=== PATIENT | female | born 1955 | race Caucasian/White ===

== ENCOUNTER → 2018-09-23 | Outpatient (CLI) | payer OTHER ==
--- NOTE | 2018-09-25 11:59 | RAD ---
DATE: 09/23/2018 EXAM: DIGITAL SCREEN BILAT W/CAD HISTORY: Breast implants, routine screening COMPARISON: 04/17/2011 This study was interpreted with the benefit of Computerized Aided Detection (CAD). Breast Density: SCATTERED The breast parenchyma shows scattered fibroglandular densities. Breast parenchyma level B. FINDINGS: Routine and implant exclusion views of both breasts were obtained in CC and MLO projections. Again noted is collapse of the right breast implant which has worsened since the previous study. There are multiple unchanged dense nodular opacities in the right breast suggesting extravasated silicone. Scattered benign type calcifications are also noted in the right breast. No new breast densities are seen. On the left there are extensive irregular capsular calcifications which have developed since the previous study. The adjacent breast tissues show no evidence of a discrete mass. IMPRESSION: 1. Rupture of the right breast implant with stable dense nodular opacities compatible with extravasated silicone. 2. Extensive capsular calcification related to the left breast implant. 3. No mammographic evidence of malignancy in either breast. BI-RADS CATEGORY: 2 BENIGN FINDING(S) RECOMMENDED FOLLOW-UP: 12M 12 MONTH FOLLOW-UP PQRS compliance statement: Patient information was entered into a reminder system with a target due date for the next mammogram. Mammography is a sensitive method for finding small breast cancers, but it does not detect them all and is not a substitute for careful clinical examination. A negative mammogram does not negate a clinically suspicious finding and should not result in delay in biopsying a clinically suspicious abnormality. "Our facility is accredited by the [employer] Mammography Program."
== END | disposition home or self-care (01) ==
LOC: MAMMO 08:59
PROVIDERS: ATTEND Physician Assistant
DX: Z12.31 Encounter for screening mammogram for malignant neoplasm of breast (principal); T85.898A Other specified complication of other internal prosthetic devices, implants and grafts, initial encounter
CPT/HCPCS: 77067

== ENCOUNTER 2020-04-23 15:55 | Emergency (ER) | payer OTHER ==
[~2020-04-23] VITALS: Ht 162.6 cm; Wt 63.6 kg
--- NOTE | 2020-04-23 16:31 | PHYS DOC ---
Past History Past Medical History: Depression, High Cholesterol, Hypertension Alcohol Use: Occasionally (Last drink this morning) Adult General Chief Complaint Chief Complaint: SHORTNESS OF BREATH HPI HPI Patient is a 64-year-old female who presents with palpitations. Patient reports onset was yesterday evening after drinking several beers. Nothing known makes better or worse. Patient reports generalized palpitations, chest tightness, and increased shortness of breath. Symptoms wax and wane since onset. Patient was able to sleep but after drinking a beer earlier today, patient had recurrent symptoms concerning her to travel to our facility via POV for evaluation. Patient voices history of hypertension and takes an unknown medication for this, she takes a statin for hypercholesterolemia, and also takes an unknown medicine for anxiety/depression. She has no cardiac history, no significant family history of early cardiac disease, she has never had a formal cardiac work-up. Patient otherwise denies any fever, URI and/or COVID symptoms, ripping chest pain, abdominal pain, nausea/vomit/diarrhea, no urinary symptoms. Of note, patient with full capacity confirmed she is full CODE STATUS Review of Systems Review of Systems Fourteen body systems of review of systems have been reviewed. See HPI for pertinent positives and negative responses, other milligan all other systems are negative, non-pertinent or non-contributory Allergies Allergies Allergies Coded Allergies Type Severity Reaction Last Updated Verified No Known Drug Allergies 04/23/20 No Physical Exam Physical Exam Constitutional: Well developed, well nourished, no acute distress, non-toxic appearance. [] HENT: Normocephalic, atraumatic, bilateral external ears normal, oropharynx moist, no oral exudates, nose normal. [] Eyes: PERRLA, EOMI, conjunctiva normal, no discharge. [] Neck: Normal range of motion, no tenderness, supple, no stridor. [] Cardiovascular:Heart rate regular rhythm, no murmur [] Lungs & Thorax: Bilateral breath sounds clear to auscultation [] Abdomen: Bowel sounds normal, soft, no tenderness, no masses, no pulsatile masses. [] Skin: Warm, dry, no erythema, no rash. [] Back: No tenderness, no CVA tenderness. [] Extremities: No tenderness, no cyanosis, no clubbing, ROM intact, no edema. [] Neurologic: Alert and oriented X 3, normal motor function, normal sensory function, no focal deficits noted. [] Psychologic: Affect normal, judgement normal, mood normal. [] Current Patient Data Vital Signs Vital Signs Date Time Temp Pulse Resp B/P (MAP) Pulse Ox O2 Delivery O2 Flow Rate FiO2 04/23/20 16:46 138 121/62 04/23/20 16:26 97.3 24 100 Lab Results Laboratory Tests Test 04/23/20 16:23 04/23/20 17:22 White Blood Count 11.7 x10^3/uL (4.0-11.0) Red Blood Count 3.84 x10^6/uL (3.50-5.40) Hemoglobin 10.4 g/dL (12.0-15.5) Hematocrit 31.4 % (36.0-47.0) Mean Corpuscular Volume 82 fL (79-100) Mean Corpuscular Hemoglobin 27 pg (25-35) Mean Corpuscular Hemoglobin Concent 33 g/dL (31-37) Red Cell Distribution Width 14.4 % (11.5-14.5) Platelet Count 477 x10^3/uL (140-400) Neutrophils (%) (Auto) 77 % (31-73) Lymphocytes (%) (Auto) 11 % (24-48) Monocytes (%) (Auto) 11 % (0-9) Eosinophils (%) (Auto) 1 % (0-3) Basophils (%) (Auto) 1 % (0-3) Neutrophils # (Auto) 9.0 x10^3uL (1.8-7.7) Lymphocytes # (Auto) 1.2 x10^3/uL (1.0-4.8) Monocytes # (Auto) 1.3 x10^3/uL (0.0-1.1) Eosinophils # (Auto) 0.1 x10^3/uL (0.0-0.7) Basophils # (Auto) 0.1 x10^3/uL (0.0-0.2) Sodium Level 120 mmol/L (136-145) Potassium Level 3.3 mmol/L (3.5-5.1) Chloride Level 87 mmol/L (98-107) Carbon Dioxide Level 17 mmol/L (21-32) Anion Gap 16 (6-14) Blood Urea Nitrogen 5 mg/dL (7-20) Creatinine 0.7 mg/dL (0.6-1.0) Estimated GFR (Cockcroft-Gault) 84.5 BUN/Creatinine Ratio 7 (6-20) Glucose Level 109 mg/dL (70-99) Calcium Level 8.6 mg/dL (8.5-10.1) Magnesium Level 1.8 mg/dL (1.8-2.4) Total Bilirubin 0.5 mg/dL (0.2-1.0) Aspartate Amino Transf (AST/SGOT) 22 U/L (15-37) Alanine Aminotransferase (ALT/SGPT) 13 U/L (14-59) Alkaline Phosphatase 205 U/L (46-116) Creatine Kinase 76 U/L (26-192) Creatine Kinase MB (Mass) 2.0 ng/mL (0.0-3.6) Creatine Kinase MB Relative Index 2.6 % (0-4) Troponin I Quantitative < 0.017 ng/mL (0-0.055) YK-[id number]-[id number]-Type Natriuretic Peptide 2209 pg/mL (0-124) Total Protein 7.3 g/dL (6.4-8.2) Albumin 2.2 g/dL (3.4-5.0) Albumin/Globulin Ratio 0.4 (1.0-1.7) Lipase 41 U/L (73-393) Prothrombin Time 12.1 SEC (9.4-11.4) Prothromb Time International Ratio 1.2 (0.9-1.1) Activated Partial Thromboplast Time 37 SEC (23-33) EKG EKG EKG ordered and interpreted by myself at 1630 hrs. as atrial fibrillation with rapid ventricular response with ventricular rate of 126 bpm, unremarkable intervals, no axis deviation, no acute ischemic findings, no STEMI Radiology/Procedures Radiology/Procedures PROCEDURE: PORTABLE CHEST 1V Exam: Chest one view INDICATION: Shortness of breath TECHNIQUE: Frontal view of the chest Comparisons: None FINDINGS: The cardiomediastinal silhouette and pulmonary vessels are within normal limits. Hazy opacity at the right mid and lower lung. There is a small to moderate right pleural effusion. IMPRESSION: Small to moderate right pleural effusion with adjacent airspace disease may relate to atelectasis edema and/or consolidation. Electronically signed by: Bridget Acosta MD (04/23/2020 4:54 PM) [id number] Course & Med Decision Making Course & Med Decision Making Ambulatory patient seen on immediate ER arrival Airway patent, patient in mild respiratory distress with increased work of breathing, vitals remarkable for atrial fibrillation with rapid ventricular rate ~130-150bpm Comprehensive history and physical exam performed, subsequent diagnostic studies ordered IV access obtained, weight-based Cardizem (16 mg) administered resulting in rate control, 324 mg aspirin, 1 g Rocephin and 500 mg azithromycin administered ER course reviewed, I discussed with patient need for admission for continued cardiac monitoring, medical care and further diagnostic work-up. Patient was amenable I discussed most likely diagnosis of atrial fibrillation with RVR that is now rate controlled. Source of this is unknown and new onset, patient's alcohol abuse and current right lower lobe effusion/consolidation are likely causes I also discussed gross electrolyte abnormalities with patient, this is likely a result of patient's unknown blood pressure medication and/or unknown depression medication. Patient has friend getting home medications to bring to hospital for hospitalist review I contacted Dr. Reece regarding this admission and joint decision to transfer to [facility] given more access to specialist such as cardiology and if needed pulmonology etc. I contacted Dr. Coats, cardiology at [facility] who recommended I administer 1 mg/kg Lovenox and 250 mcg digoxin prior to ER departure to [facility] Patient updated on these conversations, most likely diagnoses, and need for transfer and admission and she was amenable. All questions and concerns addressed prior to ER transport in stable condition to [facility] for higher acuity of care Nichelle Disclaimer Nichelle Disclaimer This electronic medical record was generated, in whole or in part, using a voice recognition dictation system. The HEART Score for CP Pts HEART Score for Chest Pain: HEART Score for Chest Pain Response (Comments) Value History Moderately Suspicious 1 ECG Normal 0 Age >45 - < 65 1 Risk Factors >3 Risk Factors or Hx CAD 2 Troponin < Normal Limit 0 Total 4 Risk Factors: Risk Factors: DM, Current or recent (<one month) smoker, HTN, HLP, family history of CAD, obesity. Risk Scores: Score 0 - 3: 2.5% MACE over next 6 weeks - Discharge Home Score 4 - 6: 20.3% MACE over next 6 weeks - Admit for Clinical Observation Score 7 - 10: 72.7% MACE over next 6 weeks - Early Invasive Strategies Departure Departure: Impression: Primary Impression: Atrial fibrillation with RVR Additional Impressions: Alcohol abuse RLL pneumonia Hyponatremia HTN (hypertension) HLD (hyperlipidemia) Depression Disposition: 05 TRANSFER OTHER ([facility]) Admitting Physician: Lucia Reece Condition: STABLE Referrals: LINDSEY WILKES (PCP) Justification of Admission: Justification of Admission: Justification of Admission Dx: Yes (NEW ONSET ATRIAL FIB WITH RVR, RLL PNA, HYPONATREMIA) Problem Qualifiers SEAN ARCHIBALD DO Apr 23, 2020 16:31
[2020-04-23] MEDS ORDERED: dilTIAZem 25 MG/5 ML VIAL IVP ONE ×2 (16:32→16:45)
--- NOTE | 2020-04-23 16:40 | EKG ---
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
[2020-04-23] MEDS ORDERED: ASPIRIN CHEWABLE 81 MG TABLET. PO ONE (16:45)
[2020-04-23 16:54] LABS: CALCIUM 8.6 mg/dL (8.5-10.1); CREATININE 0.7 mg/dL (0.6-1.0); GFR 84.5; POTASSIUM 3.3 mmol/L (3.5-5.1)
--- NOTE | 2020-04-23 16:57 | RAD ---
Exam: Chest one view INDICATION: Shortness of breath TECHNIQUE: Frontal view of the chest Comparisons: None FINDINGS: The cardiomediastinal silhouette and pulmonary vessels are within normal limits. Hazy opacity at the right mid and lower lung. There is a small to moderate right pleural effusion. IMPRESSION: Small to moderate right pleural effusion with adjacent airspace disease may relate to atelectasis edema and/or consolidation. Electronically signed by: Bridget Acosta MD (04/23/2020 4:54 PM) [id number]
[2020-04-23 16:59] LABS: BASO # 0.1 x10^3/uL (0.0-0.2); BASO % 1 % (0-3); EOS # 0.1 x10^3/uL (0.0-0.7); EOS % 1 % (0-3); HEMATOCRIT 31.4 % (36.0-47.0); HEMOGLOBIN 10.4 g/dL (12.0-15.5); LYMPH # 1.2 x10^3/uL (1.0-4.8); LYMPH % 11 % (24-48); MEAN CORPUSCULAR HEMOGLOBIN 27 pg (25-35); MEAN CORPUSCULAR HGB CONC 33 g/dL (31-37); MEAN CORPUSCULAR VOLUME 82 fL (79-100); MONO # 1.3 x10^3/uL (0.0-1.1); MONO % 11 % (0-9); NEUT % 77 % (31-73); PLATELET COUNT 477 x10^3/uL (140-400); RED BLOOD COUNT 3.84 x10^6/uL (3.50-5.40); RED CELL DISTRIBUTION WIDTH 14.4 % (11.5-14.5); WHITE BLOOD COUNT 11.7 x10^3/uL (4.0-11.0)
[2020-04-23] MEDS ORDERED: dilTIAZem VIAL 125 MG in IV NORMAL SALINE 100ML 100 ML IV PRN (17:00)
[2020-04-23 17:11] LABS: ALBUMIN 2.2 g/dL (3.4-5.0); ALBUMIN/GLOBULIN RATIO 0.4 (1.0-1.7); MAGNESIUM 1.8 mg/dL (1.8-2.4); TOTAL BILIRUBIN 0.5 mg/dL (0.2-1.0); TOTAL PROTEIN 7.3 g/dL (6.4-8.2)
[2020-04-23] MEDS ORDERED: AZITHROMYCIN 500 MG in IV NORMAL SALINE 250ML 250 ML IV ONE (17:45)
[2020-04-23] MEDS ORDERED: ENOXAPARIN ** NOTE DOSE ** SYRINGE SQ ONE (17:45)
[2020-04-23] MEDS ORDERED: DIGOXIN IV 500 MCG/2 ML AMPUL. IV ONE (17:45)
[2020-04-23] MEDS ORDERED: AZITHROMYCIN 500 MG VIAL. IV ONE (17:48)
[2020-04-23] MEDS ORDERED: cefTRIAXone SODIUM 1 GM VIAL ONE (17:48)
[2020-04-23] MEDS ORDERED: IV NORMAL SALINE 250ML 250 ML ONE (17:48)
[2020-04-23] MEDS ORDERED: IV NORMAL SALINE 50ML 50 ML ONE (17:48)
[2020-04-23 18:43] LABS: BARBITURATES NEG (NEG); BENZODIAZEPINES NEG (NEG); CANNABINOIDS NEG (NEG); COCAINE NEG (NEG); METHADONE NEG (NEG); OPIATES NEG (NEG); PHENCYCLIDINE NEG (NEG)
[2020-04-23 18:53] LABS: AMPHETAMINE/METHAMPHETAMINE NEG (NEG)
[2020-04-23 19:10] LABS: BILIRUBIN,URINE NEG (NEG); CLARITY,URINE HAZY; COLOR,URINE STRAW; GLUCOSE,URINE NEG (NEG)
[2020-04-23 19:11] LABS: NITRITE,URINE NEG (NEG); UROBILINOGEN,URINE 0.2 mg/dL (0.2 mg/dL)
[2020-04-23 19:12] LABS: BACTERIA,URINE FEW /HPF (0-FEW)
[2020-04-23 19:47] VITALS: BP 108/70
== END 2020-04-23 20:33 | disposition short-term general hospital (02) ==
LOC: ER 15:55
DX: I48.20 Chronic atrial fibrillation, unspecified (principal); J18.1 Lobar pneumonia, unspecified organism; E87.1 Hypo-osmolality and hyponatremia; I10 Essential (primary) hypertension; E78.5 Hyperlipidemia, unspecified; F32.9 Major depressive disorder, single episode, unspecified; F10.10 Alcohol abuse, uncomplicated; E78.00 Pure hypercholesterolemia, unspecified; Y90.9 Presence of alcohol in blood, level not specified
CPT/HCPCS: 36415; 71045; 80053; 80307; 81001; 82553; 83605; 83690; 83735; 83880; 84443; 84484; 85025; 85610; 85730; 87040; 87086; 93005; 96365; 96372; 96375; 99285; J0456; J0696; J1160; J1650; J3490; J7050; 87077; 87186